=== PATIENT | female | born 1940 | race Caucasian/White ===

== ENCOUNTER 2018-12-19 10:09 | Emergency (ER) | payer MEDICARE, SELFPAY ==
[2018-12-19 10:27] VITALS: PULSE 54; RESP 16; TEMP 37.2; O2SAT 98
--- NOTE | 2018-12-19 10:42 | DI.RAD_ITS ---
SYMPTOM/DIAGNOSIS: LT CHEST PAIN, S/P FALL, HUMERAL PAIN LEFT HUMERUS: No fracture or dislocation is seen. Degenerative changes are noted at the AC joint. IMPRESSION: Degenerative changes. No acute abnormality.
--- NOTE | 2018-12-19 10:42 | DI.RAD_ITS ---
SYMPTOM/DIAGNOSIS: LT CHEST PAIN, S/P FALL PA AND LATERAL CHEST: There are no prior comparison exams. The heart size is normal. The aorta is mildly tortuous. The lungs appear clear. Degenerative changes are seen in the spine. There are surgical clips in the right upper quadrant. IMPRESSION: No acute abnormality.
--- NOTE | 2018-12-19 10:43 | W.ED.GENAD ---
Discharge Plan Disposition Patient Disposition: HOME Condition: Stable Discharge Details Chief Complaint: Chest/Rib Clinical Impression: Contusion of arm, left, Contusion of rib on left side Primary Care Provider: Shine Torres ED Provider: Doyle Stanley Home Meds and New Rx's Prescriptions: New oxycodone 5 mg tablet 5 mg PO Q6H PRN (Reason: pain) Qty: 12 RF: 0 Continued [id number] [krill oil] 1 EACH capsule 3 ea PO DAILY RF: 0 vit D3 2,000 mg PO DAILY RF: 0 vitamin E 400 UNIT capsule 400 unit PO DAILY RF: 0 cyanocobalamin (vitamin B-12) [Vitamin B-12] 500 MCG tablet 100 mcg PO DAILY RF: 0 ascorbate calcium 500 MG tablet 500 mg PO DAILY RF: 0 ferrous gluconate 324 MG tablet 324 mg PO DAILY RF: 0 Discharge Instructions Instructions: Rib Contusion (ED) Additional Instructions: use the incentive spirometer every hour while you are awake take 1000mg tylenol and 600mg ibuprofen every 6 hours for pain as needed. If you need additional pain relief take 1 oxycodone Follow up with your primary care provider this week if symptoms continue return to the emergency department for new pain such as abdominal pain, persistent vomit, worsening trouble breathing or fevers Medical Decision Making 78 yo female comes in with left sided chest pain. She states it started a week ago when she was outside and slipped on ice landing on her left sided. She denies head trauma, loc and has not had any neck pain, roman, n/v since. She has no abdominal tenderness to suggest splenic injury or other traumatic injury. She has point tenderness over the left 4-6th ribs in the anterior and mid axillary line. NOrmal lung sounds. Denies pain with exertion or radiation of pain and is clear that the pain has been since the mechanical fall so doubt entities such as acs, pe or dissection. Will obtain xray of the chest to eval for fx vs ptx though suspect contusion. She also has mid humerus pain without deformity on exam, intact distal senation and normal rom of the left shoulder and elbow. Suspect arm contusion but will also xray the humerus xrays negative, will tx as contusion vs fx not seen on xray. NO ptx. Will have her f/u with pcp and return precautions given Differential Diagnosis fx, contusion, ptx Imaging Data Radiologic Study: Attestation: I personally reviewed and interpreted this imaging study as follows: Imaging: X-Ray Radiologist's impression: no acute findings on chest xray Radiologic Study #2: Attestation: I personally reviewed and interpreted this imaging study as follows: Imaging: X-Ray Radiologist's impression: IMPRESSION: No acute findings. on humerus xray HPI General Mode of arrival: ambulatory. Date/Time Provider Initiated Documentation: 12/19/18 10:31. Limitations to Documentation: no limitations. Information obtained by: patient. History of Present Illness 78 year old F presents to the emergency department with the chief complaint of left sided chest pain, described as moderate, Quality is described as stabbing and aching, and is localized to the chest. Patient reports no radiation. Patient started experiencing this week(s) (1) and it has been constant. No relieving factors improve symptom(s), Other factors that worsen symptoms (deep breaths) . Patient notes other (left humerus pain). Patient did receive the following treatments prior to arrival, other (tylenol) Related Data Home Medications Medication Instructions Recorded Confirmed Vit D3 2,000 mg PO DAILY 06/19/14 12/19/18 [id number]-gsdib-[id number]-[id number] 3 ea PO DAILY 06/19/14 12/19/18 [krill oil] vitamin E 400 unit PO DAILY 03/06/15 12/19/18 ascorbate calcium 500 mg PO DAILY 05/17/18 12/19/18 cyanocobalamin (vitamin B-12) 100 mcg PO DAILY 05/17/18 12/19/18 [Vitamin B-12] ferrous gluconate 324 mg PO DAILY 05/17/18 12/19/18 oxycodone 5 mg PO Q6H PRN #12 tab 12/19/18 Previous Rx's Medication Instructions Recorded oxycodone 5 mg PO Q6H PRN #12 tab 12/19/18 Allergies Allergy/AdvReac Type Severity Reaction Status Date / Time tetanus and diphtheria Allergy Intermediate Unverified 12/19/18 10:31 toxoids donepezil HCl [From Aricept] Allergy Mild Unverified 12/19/18 10:31 Flu shot AdvReac Unknown Uncoded 12/19/18 10:31 General Stated Complaint: Chest/Rib FLY: 4 Review of Systems Review of Systems All systems reviewed & are unremarkable except as noted in HPI and below Constitutional Denies chills, Denies fever(s) and Denies weakness Cardiovascular Denies dyspnea Respiratory Denies cough and Denies dyspnea Gastrointestinal Denies abdominal pain, Denies nausea and Denies vomiting Integumentary/Breasts Denies rash Neurologic Denies weakness [facility] Social History Smoking/Tobacco Use Status: Never Alcohol Intake: never Drug use: Never Substance use type: does not use Do you feel safe at home: Yes Do you feel safe in your relationship?: Yes Exam Const General: no acute distress Orientation: alert HENMT Head: normal to inspection Ears: external ears normal General nose exam: external nose normal Mouth: moist mucous membranes Eyes General: appearance normal, both eyes and all related structures Neck Neck: normal visual inspection Chest Chest: no crepitus and localized rib tenderness with anteroposterior compression Resp Effort & Inspection: normal respiratory effort and able to speak in complete sentences Cardio Rate: regular rate Skin General skin exam: no rashes or lesions noted Neuro General: alert and oriented x3 Extrem General: normal to inspection Psych Mental Status: mental status grossly normal Course Vital Signs Temperature 37.2 C 12/19/18 10:27 Pulse 54 L 12/19/18 10:27 Respiratory Rate 16 12/19/18 10:27 Pulse Oximetry 98 12/19/18 10:27 Temperature 37.2 C 12/19/18 10:27 Temperature Source Temporal Artery Scan 12/19/18 10:27 Pulse 54 L 12/19/18 10:27 Respiratory Rate 16 12/19/18 10:27 Respiratory Effort Non-Labored 12/19/18 10:35 Respiratory Depth Normal 12/19/18 10:35 Respiratory Pattern Normal 12/19/18 10:35 Blood Pressure Position Sitting 12/19/18 10:27 Pulse Oximetry 98 12/19/18 10:27 Oxygen Delivery Method Room Air 12/19/18 10:27 Oxygen Flow Rate 0 12/19/18 10:27 Pain Level 9 12/19/18 10:35
--- NOTE | 2018-12-19 10:46 | ED.GENADUL_ITS ---
Discharge Plan Disposition Patient Disposition: HOME Condition: Stable Discharge Details Chief Complaint: Chest/Rib Clinical Impression: Contusion of arm, left, Contusion of rib on left side Primary Care Provider: Shine Torres ED Provider: Doyle Stanley Home Meds and New Rx's Prescriptions: New oxycodone 5 mg tablet 5 mg PO Q6H PRN (Reason: pain) Qty: 12 RF: 0 Continued [id number]-[id number]-[id number]-jwyihm [krill oil] 1 EACH capsule 3 ea PO DAILY RF: 0 vit D3 2,000 mg PO DAILY RF: 0 vitamin E 400 UNIT capsule 400 unit PO DAILY RF: 0 cyanocobalamin (vitamin B-12) [Vitamin B-12] 500 MCG tablet 100 mcg PO DAILY RF: 0 ascorbate calcium 500 MG tablet 500 mg PO DAILY RF: 0 ferrous gluconate 324 MG tablet 324 mg PO DAILY RF: 0 Discharge Instructions Instructions: Rib Contusion (ED) Additional Instructions: use the incentive spirometer every hour while you are awake take 1000mg tylenol and 600mg ibuprofen every 6 hours for pain as needed. If you need additional pain relief take 1 oxycodone Follow up with your primary care provider this week if symptoms continue return to the emergency department for new pain such as abdominal pain, persistent vomit, worsening trouble breathing or fevers Medical Decision Making 78 yo female comes in with left sided chest pain. She states it started a week ago when she was outside and slipped on ice landing on her left sided. She denies head trauma, loc and has not had any neck pain, roman, n/v since. She has no abdominal tenderness to suggest splenic injury or other traumatic injury. She has point tenderness over the left 4-6th ribs in the anterior and mid axillary line. NOrmal lung sounds. Denies pain with exertion or radiation of pain and is clear that the pain has been since the mechanical fall so doubt entities such as acs, pe or dissection. Will obtain xray of the chest to eval for fx vs ptx though suspect contusion. She also has mid humerus pain without deformity on exam, intact distal senation and normal rom of the left shoulder and elbow. Suspect arm contusion but will also xray the humerus xrays negative, will tx as contusion vs fx not seen on xray. NO ptx. Will have her f/u with pcp and return precautions given Differential Diagnosis fx, contusion, ptx Imaging Data Radiologic Study: Attestation: I personally reviewed and interpreted this imaging study as follows: Imaging: X-Ray Radiologist's impression: no acute findings on chest xray Radiologic Study #2: Attestation: I personally reviewed and interpreted this imaging study as follows: Imaging: X-Ray Radiologist's impression: IMPRESSION: No acute findings. on humerus xray HPI General Mode of arrival: ambulatory . Date/Time Provider Initiated Documentation: 12/19/18 10:31 . Limitations to Documentation: no limitations . Information obtained by: patient . History of Present Illness 78 year old F presents to the emergency department with the chief complaint of left sided chest pain, described as moderate, Quality is described as stabbing and aching, and is localized to the chest. Patient reports no radiation. Patient started experiencing this week(s) (1) and it has been constant. No relieving factors improve symptom(s), Other factors that worsen symptoms (deep breaths) . Patient notes other (left humerus pain). Patient did receive the following treatments prior to arrival, other (tylenol) Related Data Home Medications Medication Instructions Recorded Confirmed Vit D3 2,000 mg PO DAILY 06/19/14 12/19/18 [id number]-[id number]-2-[id number]-hno-omblgx 3 ea PO DAILY 06/19/14 12/19/18 [krill oil] vitamin E 400 unit PO DAILY 03/06/15 12/19/18 ascorbate calcium 500 mg PO DAILY 05/17/18 12/19/18 cyanocobalamin (vitamin B-12) 100 mcg PO DAILY 05/17/18 12/19/18 [Vitamin B-12] ferrous gluconate 324 mg PO DAILY 05/17/18 12/19/18 oxycodone 5 mg PO Q6H PRN #12 tab 12/19/18 Previous Rx's Medication Instructions Recorded oxycodone 5 mg PO Q6H PRN #12 tab 12/19/18 Allergies Allergy/AdvReac Type Severity Reaction Status Date / Time tetanus and diphtheria Allergy Intermediate Unverified 12/19/18 10:31 toxoids donepezil HCl [From Aricept] Allergy Mild Unverified 12/19/18 10:31 Flu shot AdvReac Unknown Uncoded 12/19/18 10:31 General Stated Complaint: Chest/Rib FLY: 4 Review of Systems Review of Systems All systems reviewed & are unremarkable except as noted in HPI and below Constitutional Denies chills, Denies fever(s) and Denies weakness Cardiovascular Denies dyspnea Respiratory Denies cough and Denies dyspnea Gastrointestinal Denies abdominal pain, Denies nausea and Denies vomiting Integumentary/Breasts Denies rash Neurologic Denies weakness [facility] Social History Smoking/Tobacco Use Status: Never Alcohol Intake: never Drug use: Never Substance use type: does not use Do you feel safe at home: Yes Do you feel safe in your relationship?: Yes Exam Const General: no acute distress Orientation: alert HENMT Head: normal to inspection Ears: external ears normal General nose exam: external nose normal Mouth: moist mucous membranes Eyes General: appearance normal, both eyes and all related structures Neck Neck: normal visual inspection Chest Chest: no crepitus and localized rib tenderness with anteroposterior compression Resp Effort & Inspection: normal respiratory effort and able to speak in complete sentences Cardio Rate: regular rate Skin General skin exam: no rashes or lesions noted Neuro General: alert and oriented x3 Extrem General: normal to inspection Psych Mental Status: mental status grossly normal Course Vital Signs Temperature 37.2 C 12/19/18 10:27 Pulse 54 L 12/19/18 10:27 Respiratory Rate 16 12/19/18 10:27 Pulse Oximetry 98 12/19/18 10:27 Temperature 37.2 C 12/19/18 10:27 Temperature Source Temporal Artery Scan 12/19/18 10:27 Pulse 54 L 12/19/18 10:27 Respiratory Rate 16 12/19/18 10:27 Respiratory Effort Non-Labored 12/19/18 10:35 Respiratory Depth Normal 12/19/18 10:35 Respiratory Pattern Normal 12/19/18 10:35 Blood Pressure Position Sitting 12/19/18 10:27 Pulse Oximetry 98 12/19/18 10:27 Oxygen Delivery Method Room Air 12/19/18 10:27 Oxygen Flow Rate 0 12/19/18 10:27 Pain Level 9 12/19/18 10:35
[2018-12-19] MEDS: Ibuprofen 600 MG TAB PO (11:17)
[2018-12-19] MEDS: oxyCODONE 5 MG TAB PO (11:49)
--- NOTE | 2018-12-19 12:01 | DI.VRAD_ITS ---
EXAM: XR Chest, 2 Views EXAM DATE/TIME: 12/19/2018 10:43 AM CLINICAL HISTORY: 78 years old, female; Signs and symptoms; Other: Left chest pain S/P fall one week ago; Additional info: Left chest pain with inspiration , S/P fall one week ago TECHNIQUE: Imaging protocol: XR of the chest, 2 views. COMPARISON: No relevant prior studies available. FINDINGS: Lungs: Unremarkable. No consolidation. Pleural space: Unremarkable. No pleural effusion. No pneumothorax. Heart/Mediastinum: Unremarkable. No cardiomegaly. Upper abdomen: Surgical clips in the gallbladder fossa consistent with cholecystectomy. Bones/joints: Moderate thoracic spondylosis. IMPRESSION: No acute findings. Dictated and Authenticated by: Doyle Rodriguez MD. Ordering:PONCHO Kwon MD
--- NOTE | 2018-12-19 12:04 | DI.VRAD_ITS ---
EXAM: XR Left Humerus, 2 or More Views EXAM DATE/TIME: 12/19/2018 10:43 AM CLINICAL HISTORY: 78 years old, female; Signs and symptoms; Other: Pain S/P fall one week prior; Additional info: Left humerus pain S/P fall one week ago TECHNIQUE: Imaging protocol: XR Left humerus, 2 or more views. COMPARISON: No relevant prior studies available. FINDINGS: Bones/joints: Normal. Soft tissues: Normal. IMPRESSION: No acute findings. Dictated and Authenticated by: Doyle Rodriguez MD. Ordering:PONCHO Kwon MD
--- NOTE | 2018-12-19 12:21 | RESPIRATORY ---
12/19/18-Instructed Pt and her on Incentive Spirometry use. Pt has great insp force . Volume 2,000 ML. Cannot perform a breath hold as it's too painful.
[2018-12-19 12:28] VITALS: BP 163/55; PULSE 51; RESP 18; TEMP 36.4; O2SAT 99
== END 2018-12-19 12:42 | disposition home or self-care (01) ==
PROVIDERS: Emergency Provider Emergency Medicine; PCP Internal Medicine
DX: S40.022A Contusion of left upper arm, initial encounter (principal); S20.212A Contusion of left front wall of thorax, initial encounter; W00.0XXA Fall on same level due to ice and snow, initial encounter; I10 Essential (primary) hypertension
CPT/HCPCS: 99284; 71046; 73060; 99283

== ENCOUNTER 2019-01-20 18:36 | Outpatient (REF) | payer MEDICARE, SELFPAY ==
[2019-01-20 19:00] LABS: HCT 41.2 % (36.0-46.0); HGB 13.7 g/dL (12.0-15.5); Mean Corp. HGB Concentration 33.3 g/dL (32.0-36.0); Mean Corpuscular Hemoglobin 30.7 pg (27.0-33.0); Mean Corpuscular Volume 92.4 fL (80-95); Mean Platelet Volume 11.2 fL (8.0-11.0); Platelet Count 259 x1000/uL (130-400); RBC 4.46 m/cumm (4.00-5.20); RBC Distribution Width 12.2 % (11.7-14.6); White Blood Cell Count 5.37 k/cumm (4.4-10.8)
[2019-01-20 19:06] LABS: Anion Gap 8.3 mmol/L (3-11); BUN 11 mg/dL (7-18); CO2 28.7 mmol/L (21.0-32.0); CREATININE 0.81 mg/dL (0.55-1.02); Chloride 103 mmol/L (98-107); Glucose 107 mg/dL (70-100); Potassium 4.4 mmol/L (3.5-5.1); Sodium 140 mmol/L (136-145); TSH 1.94 uIU/mL (0.358-3.74)
[2019-01-20 19:16] LABS: Calcium 9.4 mg/dL (8.5-10.1)
== END 2019-01-20 18:56 ==
LOC: NCHCN 18:36
PROVIDERS: PCP Internal Medicine; Visit Provider Internal Medicine
DX: G30.9 Alzheimer's disease, unspecified (principal); E53.8 Deficiency of other specified B group vitamins; M72.0 Palmar fascial fibromatosis [Dupuytren]; F51.04 Psychophysiologic insomnia
CPT/HCPCS: 80048; 85027; 84443

== ENCOUNTER 2019-07-18 11:48 | Outpatient (CLI) | payer MEDICARE, SELFPAY ==
--- NOTE | 2019-07-18 12:27 | DI.RAD_ITS ---
EXAM: XR CHEST 2V PA LATERAL INDICATION: COUGH, R05. COMPARISON: XR CHEST 2V PA LATERAL from 12/19/2018 TECHNIQUE: 2D digital imaging was performed. FINDINGS: The lungs are well expanded and free of infiltrate. There is no pleural effusion or pneumothorax. Th e cardiovascular structures are intact. IMPRESSION: No evidence of acute cardiopulmonary disease.
== END 2019-07-18 12:08 ==
PROVIDERS: PCP Internal Medicine; Visit Provider Nurse Practitioner Family
DX: R05 Cough (principal)
CPT/HCPCS: 71046